=== PATIENT | male | born 1990 | race African-American/Black ===

== ENCOUNTER 2018-05-13 08:14 | Inpatient (IN) | payer OTHER ==
[2018-05-13] VITALS (10 sets, daily range): BP systolic 97–130; BP diastolic 52–79
[~2018-05-13] VITALS: Ht 188 cm; Wt 81.6 kg
--- NOTE | 2018-05-13 08:54 | PDOC1 ---
History and Physical Date of Admission Date of Admission DATE: 05/13/18 TIME: 08:51 Identification/Chief Complaint Chief Complaint Abdominal pain right lower quadrant Source Source: Patient History of Present Illness History of Present Illness 27-year-old male with 2 day history of abdominal pain radiating to the right lower quadrant sharp in nature worsening over time. Patient does describe nausea no vomiting. Denies any fevers or chills. His never had any surgery. CT scan shows dilated appendix with fecalith Past Medical History Cardiovascular: No pertinent hx Pulmonary: No pertinent hx GI: No pertinent hx Heme/Onc: No pertinent hx Hepatobiliary: No pertinent hx Psych: No pertinent hx Rheumatologic: No pertinent hx ENT: No pertinent hx Renal/: No pertinent hx Endocrine: No pertinent hx Dermatology: No pertinent hx Past Surgical History Past Surgical History: No pertinent history Family History Family History: No Significant Social History Smoke: No ALCOHOL: rare Drugs: None Allergies Allergies: Coded Allergies: No Known Drug Allergies (Unverified , 05/13/18) ROS Gastrointestinal: Yes Nausea, Yes Abdominal Pain Physical Exam General: Alert, Oriented X3, Cooperative, mild distress HEENT: Atraumatic, PERRLA, EOMI Lungs: Clear to auscultation, Normal air movement Heart: RRR, no murmurs Abdomen: Normal bowel sounds, Soft, Other (tender to palpation right lower quadrant) Rectal Exam: not examined Extremities: No edema Skin: No significant lesion Neuro: Normal speech Psych/Mental Status: Mental status NL VTE Prophylaxis Ordered VTE Prophylaxis Devices: Yes VTE Pharmacological Prophylaxi: Contraindicated Assessment/Plan Assessment/Plan Right lower quadrant abdominal pain with nausea CT scan showing signs consistent with acute appendicitis plan for laparoscopic appendectomy today. Discussed procedure with the patient including risk benefits possibility of open appendectomy. MARGOTH ABRAHAM MD May 13, 2018 08:54
[2018-05-13] MEDS ORDERED: IV RINGERS,LACTATED 1000ML 1,000 ML IV SCH (09:08)
[2018-05-13] MEDS ORDERED: HYDROmorphone 2 MG/ML VIAL IV PRN (09:15)
[2018-05-13] MEDS ORDERED: MORPHINE SULFATE 2 MG/ML VIAL. IV PRN (09:15)
[2018-05-13] MEDS ORDERED: ONDANSETRON PF 4 MG/2 ML VIAL. IV PRN ×2 (09:15→11:30)
[2018-05-13] MEDS ORDERED: fentaNYL PF VIAL 100 MCG/2 ML VIAL IV PRN (09:15)
[2018-05-13] MEDS ORDERED: LIDOCAINE 1% PF 2 ML VIAL. ID PRN (09:15)
[2018-05-13] MEDS ORDERED: PROCHLORPERAZINE 10 MG/2 ML VIAL. IV PRN (09:15)
[2018-05-13] MEDS ORDERED: PROPOFOL 20 ML IV ONE (09:28)
[2018-05-13] MEDS ORDERED: LIDOCAINE 2% PF 5 ML VIAL. ONE (09:28)
[2018-05-13] MEDS ORDERED: ROCURONIUM 50 MG/5 ML VIAL. ONE (09:29)
[2018-05-13] MEDS ORDERED: fentaNYL PF VIAL 100 MCG/2 ML VIAL ONE ×2 (09:29→11:28)
[2018-05-13] MEDS ORDERED: BUPIVAC MPF-EPI 0.5%-1:200000 30 ML VIAL. ONE (10:42)
[2018-05-13] MEDS: PIPERACILLIN/TAZOBACTAM 3.375 GM in IV NORMAL SALINE 50ML 50 ML IV SCH ×2 (10:59→18:47)
[2018-05-13] MEDS ORDERED: DESFLURANE 16 TO 30 MINUTES. IH ONE (11:02)
[2018-05-13] MEDS ORDERED: ONDANSETRON PF 4 MG/2 ML VIAL. ONE (11:02)
[2018-05-13] MEDS ORDERED: DEXAMETHASONE SOD PHOS 20 MG/5 ML VIAL. ONE (11:02)
[2018-05-13] MEDS ORDERED: GLYCOPYRROLATE 1 MG/5 ML VIAL. ONE (11:04)
[2018-05-13] MEDS ORDERED: NEOSTIGMINE 10 MG/10 ML VIAL. ONE (11:04)
[2018-05-13] MEDS ORDERED: PROCHLORPERAZINE 10 MG/2 ML VIAL. ONE (11:28)
[2018-05-13] MEDS: IV DEXTROSE 5%-LACT RINGERS 1,000 ML IV SCH (11:28)
--- NOTE | 2018-05-13 11:28 | PDOC4 ---
Operative Note Operative Note Date: 05/13/2018 Preoperative diagnosis: Acute appendicitis Operative diagnosis: Same Surgeon: Benedicto Procedure: Laparoscopic appendectomy Specimen: Appendix Dictation: Patient is 27-year-old male who is better to the hospital for right lower quadrant abdominal pain [address] scan showing dilated appendix with a fecalith. Procedure of laparoscopic appendectomy was explained to the patient detail risk benefits were also discussed including bleeding infection injury to intra-abdominal contents possibly necessitating further open operations alternatives to this procedure also discussed with the patient who seemed to understand and gave both verbal and written consent to have the procedure performed. Patient was taken to the operative reports the supine position general anesthesia was initiated once patient was sleep and intubated his abdomen was prepped and draped usual sterile fashion using ChloraPrep and area just above the umbilicus was injected with quarter percent Marcaine with epinephrine and incision was made with 11 blade scalpel and a varies needle was placed within the abdomen creating a pneumoperitoneum once this was completed 12 mm port was placed and a 5 mm camera was placed within the abdomen abdomen was inspected the appendix was visualized the right lower quadrant which appeared to be quite dilated and somewhat inflamed. A 5 mm port was placed in the midline low pelvis and a second 5 OmegaPort was placed in the right mid abdomen under direct visualization the appendix was grasped and retracted towards the anterior abdominal wall window was propagated and base of the appendix through the mesoappendix with a [place] dissector once this was complete an Endo RAUL stapler using a blue load was used to staple and transect the base of the appendix. An stabled and transected with the same Endo RAUL. The appendix was placed in the Endo Catch bag and removed from the umbilicus right lower quadrant pelvis were irrigated and suctioned dry hemostased and be appropriate and the pneumoperitoneum was reduced all ports were removed fascial defect at the umbilicus was closed with a [id number] 0 Vicryl suture and the skin was reapproximated all port sites for septic or Monocryl Mastisol Steri -Strips and Band-Aids were applied as dressings. Patient was awakened and extubated in the operating room taken to recovery in stable condition all sponge instrument needle counts listed as correct isthmic blood loss 5 mL MARGOTH ABRAHAM MD May 13, 2018 11:28
[2018-05-13] MEDS ORDERED: oxyCODONE/APAP 5/325 1 TAB TABLET PO PRN (11:30)
[2018-05-13] MEDS ORDERED: 0.9 % SODIUM CHLORIDE 10 ML DISP.SYRIN. IV PRN (11:30)
[2018-05-13] MEDS ORDERED: MORPHINE SULFATE 4 MG/ML VIAL. IV PRN (11:30)
[2018-05-13] MEDS ORDERED: PIPERACILLIN/TAZOBACTAM 3.375 GM in IV NORMAL SALINE 50ML 50 ML IV SCH (12:00)
[2018-05-13] MEDS: KETOROLAC 15 MG/ML VIAL. IV SCH ×3 (12:00→20:55)
[2018-05-13] MEDS: fentaNYL PF VIAL 100 MCG/2 ML VIAL IV PRN ×2 (12:09→12:36)
--- NOTE | 2018-05-13 13:30 | NUR ---
Pt admitted from PACU. A&o X4, VSS, denies pain, lap sites X3 CDI. Completed admission assessment. Oriented to room and routines. Tray ordered. Water pitcher filled. Call light within reach. Will continue to monitor.
--- NOTE | 2018-05-13 18:02 | PDOC1 ---
History and Physical Date of Admission Date of Admission DATE: 05/13/18 TIME: 18:01 Identification/Chief Complaint Chief Complaint abd pain Source Source: Chart review, Patient History of Present Illness History of Present Illness Mr. Conway, 27-year-old male, active [employer], with 2 day history of abdominal pain radiating to the right lower quadrant sharp in nature worsening over time. taken urgently to the OR with Dr. Diane due to CT from OSH with dilated appendix with fecalith Past Medical History Cardiovascular: No pertinent hx Pulmonary: No pertinent hx GI: No pertinent hx Heme/Onc: No pertinent hx Hepatobiliary: No pertinent hx Psych: No pertinent hx Rheumatologic: No pertinent hx ENT: No pertinent hx Renal/: No pertinent hx Endocrine: No pertinent hx Dermatology: No pertinent hx Past Surgical History Past Surgical History: No pertinent history Family History Family History: No Significant Social History Smoke: No ALCOHOL: rare Drugs: None Current Medications Current Medications Current Medications Piperacillin Sod/ Tazobactam Sod 3.375 gm/Sodium Chloride 50 ml @ 100 mls/hr Q6HRS IV Last administered on 05/13/18at 10:59; Start 05/13/18 at 10:00 Ondansetron HCl (Zofran) 4 mg PRN Q6HRS PRN IV NAUSEA/VOMITING; Start 05/13/18 at 09:15; Stop 05/13/18 at 18:00; Status DC Fentanyl Citrate (Fentanyl 2ml Vial) 25 mcg PRN Q5MIN PRN IV MILD PAIN; Start 05/13/18 at 09:15; Stop 05/13/18 at 18:00; Status DC Fentanyl Citrate (Fentanyl 2ml Vial) 50 mcg PRN Q5MIN PRN IV MODERATE TO SEVERE PAIN Last administered on 05/13/18at 12:36; Start 05/13/18 at 09:15; Stop 05/13/18 at 18:00; Status DC Morphine Sulfate (Morphine Sulfate) 1 mg PRN Q10MIN PRN IV SEVERE PAIN; Start 05/13/18 at 09:15; Stop 05/13/18 at 18:00; Status DC Ringer's Solution 1,000 ml @ 30 mls/hr Q24H IV ; Start 05/13/18 at 09:08; Stop 05/13/18 at 21:07 Lidocaine HCl (Xylocaine-Mpf 1% 2ml Vial) 2 ml 1X PRN PRN ID IV START; Start at 09:15; Stop 05/13/18 at 18:00; Status DC Hydromorphone HCl (Dilaudid) 0.5 mg PRN Q10MIN PRN IV SEV PAIN, Second choice; Start 05/13/18 at 09:15; Stop 05/13/18 at 18:00; Status DC Prochlorperazine Edisylate (Compazine) 5 mg PACU PRN PRN IV NAUSEA, MRX1; Start 05/13/18 at 09:15; Stop 05/13/18 at 18:00; Status DC Lidocaine HCl (Lidocaine Pf 2% Vial) 5 ml STK-MED ONCE .ROUTE ; Start 05/13/18 at 09:28; Stop 05/13/18 at 09:29; Status DC Propofol 20 ml @ As Directed STK-MED ONCE IV ; Start 05/13/18 at 09:28; Stop at 09:29; Status DC Rocuronium [place] (Zemuron) 50 mg STK-MED ONCE .ROUTE ; Start 05/13/18 at 09:29 ; Stop 05/13/18 at 09:30; Status DC Fentanyl Citrate (Fentanyl 2ml Vial) 100 mcg STK-MED ONCE .ROUTE ; Start at 09:29; Stop 05/13/18 at 09:30; Status DC Bupivacaine HCl/ Epinephrine Bitart (Sensorcain-Mpf Epi 0.5%-1:[id number]) 30 ml STK -MED ONCE .ROUTE Last administered on 05/13/18at 11:07; Start 05/13/18 at 10:42 ; Stop 05/13/18 at 10:43; Status DC Dexamethasone Sodium Phosphate (Decadron) 20 mg STK-MED ONCE .ROUTE ; Start at 11:02; Stop 05/13/18 at 11:03; Status DC Ondansetron HCl (Zofran) 4 mg STK-MED ONCE .ROUTE ; Start 05/13/18 at 11:02; Stop 05/13/18 at 11:03; Status DC Desflurane (Suprane) 15 ml STK-MED ONCE IH ; Start 05/13/18 at 11:02; Stop 05/13 at 11:03; Status DC Neostigmine Methylsulfate (Bloxiverz) 10 mg STK-MED ONCE .ROUTE ; Start at 11:04; Stop 05/13/18 at 11:05; Status DC Glycopyrrolate (Robinul) 1 mg STK-MED ONCE .ROUTE ; Start 05/13/18 at 11:04; Stop 05/13/18 at 11:05; Status DC Fentanyl Citrate (Fentanyl 2ml Vial) 100 mcg STK-MED ONCE .ROUTE ; Start at 11:28; Stop 05/13/18 at 11:29; Status DC Prochlorperazine Edisylate (Compazine) 10 mg STK-MED ONCE .ROUTE ; Start at 11:28; Stop 05/13/18 at 11:29; Status DC Sodium Chloride (Normal Saline Flush) 3 ml QSHIFT PRN IV AFTER MEDS AND BLOOD DRAWS; Start 05/13/18 at 11:30 Morphine Sulfate (Morphine Sulfate) 2 mg PRN Q3HRS PRN IV PAIN; Start 05/13/18 at 11:30 Oxycodone/ Acetaminophen (Percocet 5/325) 1 tab PRN Q4HRS PRN PO MILD PAIN, 1ST CHOICE; Start 05/13/18 at 11:30 Oxycodone/ Acetaminophen (Percocet 5/325) 2 tab PRN Q4HRS PRN PO MODERATE PAIN , SEVERE PAIN; Start 05/13/18 at 11:30 Ketorolac Tromethamine (Toradol 15mg Vial) 15 mg Q6HRS IV ; Start 05/13/18 at 12 :00; Stop 05/15/18 at 11:59 Ondansetron HCl (Zofran) 4 mg PRN Q6HRS PRN IV NAUSEA, 1ST CHOICE; Start at 11:30 Dextrose/Lactated Ringer's 1,000 ml @ 75 mls/hr [id number] IV ; Start 05/13/18 at 11:28 Piperacillin Sod/ Tazobactam Sod 3.375 gm/Sodium Chloride 50 ml @ 100 mls/hr Q6HRS IV ; Start 05/13/18 at 12:00; Status Cancel Allergies Allergies: Coded Allergies: No Known Drug Allergies (Unverified , 05/13/18) ROS General: No: Chills, Night Sweats, Fatigue, Malaise, Appetite, Other PSYCHOLOGICAL ROS: No: Anxiety, Behavioral Disorder, Concentration difficultie , Decreased libido, Depression, Disorientation, Hallucinations, Hostility, Irritablity, Memory difficulties, Mood Swings, Obsessive thoughts, Physical abuse, Sexual abuse, Sleep disturbances, Suicidal ideation, Other Eyes: No Blurry vision, No Decreased vision, No Double vision, No Dry eyes, No Excessive tearing, No Eye Pain, No Itchy Eyes, No Loss of vision, No Photophobia , No Scotomata, No Uses contacts, No Uses glasses, No Other HEENT: No: Heacaches, Visual Changes, Hearing change, Nasal congestion, Nasal discharge, Oral lesions, Sinus pain, Sore Throat, Epistaxis, Sneezing, Snoring, Tinnitus, Vertigo, Vocal changes, Other Respiratory: No: Cough, Hemoptysis, Orthopnea, Pleuritic Pain, Shortness of breath, SOB with excertion, Sputum Changes, Stridor, Tachypnea, Wheezing, Other Cardiovascular: No Chest Pain, No Palpitations, No Orthopnea, No Paroxysmal Noc. Dyspnea, No Edema, No Lt Headedness, No Other Gastrointestinal: No Nausea, No Vomiting, No Abdominal Pain, No Diarrhea, No Constipation, No Melena, No Hematochezia, No Other Genitourinary: No Dysuria, No Frequency, No Incontinence, No Hematuria, No Retention, No Discharge, No Urgency, No Pain, No Flank Pain, No Other, No , No , No , No , No , No , No Musculoskeletal: No Gait Disturbance, No Joint Pain, No Joint Stiffness, No Joint Swelling, No Muscle Pain, No Muscular Weakness, No Pain In:, No Swelling In:, No Other Skin: No Dry Skin, No Eczema, No Hair Changes, No Lumps, No Mole Changes, No Mottling, No Nail Changes, No Pruritus, No Rash, No Skin Lesion Changes, No Other, No Acne Physical Exam General: Alert, Oriented X3, Cooperative, No acute distress HEENT: Atraumatic Lungs: Normal air movement Extremities: No clubbing, No cyanosis, No edema, Normal pulses Neuro: Sensation intact, Cranial nerves 3-12 NL Psych/Mental Status: Mood NL Vitals Vitals Vital Signs Date Time Temp Pulse Resp B/P (MAP) Pulse Ox O2 Delivery O2 Flow Rate FiO2 05/13/18 16:00 55 20 130/58 (82) 96 Room Air 05/13/18 13:17 98.4 98.4 05/13/18 12:36 10.0 VTE Prophylaxis Ordered VTE Prophylaxis Devices: Yes VTE Pharmacological Prophylaxi: Contraindicated Assessment/Plan Assessment/Plan acute appendicitis, to OR, obs DALE NAILS MD May 13, 2018 18:02
[2018-05-13] MEDS: oxyCODONE/APAP 5/325 1 TAB TABLET PO PRN (20:57)
[2018-05-14] MEDS: IV DEXTROSE 5%-LACT RINGERS 1,000 ML IV SCH ×2 (00:48→14:08)
[2018-05-14] MEDS: PIPERACILLIN/TAZOBACTAM 3.375 GM in IV NORMAL SALINE 50ML 50 ML IV SCH ×4 (00:56→18:16)
[2018-05-14 03:21] VITALS: BP 125/44
[2018-05-14 05:54] LABS: BASO % 0 % (0-3); EOS % 0 % (0-3); HEMATOCRIT 39.5 % (39.0-53.0); LYMPH # 1.1 x10^3/uL (1.0-4.8); LYMPH % 8 % (24-48); MEAN CORPUSCULAR HEMOGLOBIN 30 pg (25-35); MEAN CORPUSCULAR HGB CONC 33 g/dL (31-37); MEAN CORPUSCULAR VOLUME 90 fL (79-100); MONO % 7 % (0-9); NEUT # 12.2 x10^3uL (1.8-7.7); NEUT % 85 % (31-73); PLATELET COUNT 272 x10^3/uL (140-400); RED BLOOD COUNT 4.39 x10^6/uL (4.30-5.70); RED CELL DISTRIBUTION WIDTH 13.2 % (11.5-14.5); WHITE BLOOD COUNT 14.4 x10^3/uL (4.0-11.0)
[2018-05-14] MEDS: KETOROLAC 15 MG/ML VIAL. IV SCH ×3 (05:59→18:18)
[2018-05-14 07:00] VITALS: BP 119/57
[2018-05-14] MEDS: oxyCODONE/APAP 5/325 1 TAB TABLET PO PRN ×2 (09:21→20:49)
--- NOTE | 2018-05-14 09:44 | PDOC ---
ANTIONE ROBLERO ONLINE RETAILER 05/14/18 0944: SURGICAL PROGRESS NOTE Subjective tolerating diet pain managed Vital Signs Vital Signs Date Time Temp Pulse Resp B/P (MAP) Pulse Ox O2 Delivery O2 Flow Rate FiO2 05/14/18 09:21 Room Air 05/14/18 07:00 97.9 57 16 119/57 (77) 98 97.9 05/13/18 12:36 10.0 I&O Intake and Output 05/14/18 07:00 Intake Total 2080 ml Output Total 1010 ml Balance 1070 ml Intake Oral 1230 ml IV Total 850 ml Output Urine Total 1000 ml Estimated Blood Loss 10 ml # Voids 3 General: Alert, Oriented X3, Cooperative, No acute distress Abdomen: Soft, No tenderness Labs Laboratory Tests Test 05/14/18 05:30 White Blood Count 14.4 x10^3/uL (4.0-11.0) Red Blood Count 4.39 x10^6/uL (4.30-5.70) Hemoglobin 13.0 g/dL (13.0-17.5) Hematocrit 39.5 % (39.0-53.0) Mean Corpuscular Volume 90 fL (79-100) Mean Corpuscular Hemoglobin 30 pg (25-35) Mean Corpuscular Hemoglobin Concent 33 g/dL (31-37) Red Cell Distribution Width 13.2 % (11.5-14.5) Platelet Count 272 x10^3/uL (140-400) Neutrophils (%) (Auto) 85 % (31-73) Lymphocytes (%) (Auto) 8 % (24-48) Monocytes (%) (Auto) 7 % (0-9) Eosinophils (%) (Auto) 0 % (0-3) Basophils (%) (Auto) 0 % (0-3) Neutrophils # (Auto) 12.2 x10^3uL (1.8-7.7) Lymphocytes # (Auto) 1.1 x10^3/uL (1.0-4.8) Monocytes # (Auto) 1.0 x10^3/uL (0.0-1.1) Eosinophils # (Auto) 0.0 x10^3/uL (0.0-0.7) Basophils # (Auto) 0.0 x10^3/uL (0.0-0.2) Laboratory Tests Test 05/14/18 05:30 White Blood Count 14.4 x10^3/uL (4.0-11.0) Red Blood Count 4.39 x10^6/uL (4.30-5.70) Hemoglobin 13.0 g/dL (13.0-17.5) Hematocrit 39.5 % (39.0-53.0) Mean Corpuscular Volume 90 fL (79-100) Mean Corpuscular Hemoglobin 30 pg (25-35) Mean Corpuscular Hemoglobin Concent 33 g/dL (31-37) Red Cell Distribution Width 13.2 % (11.5-14.5) Platelet Count 272 x10^3/uL (140-400) Neutrophils (%) (Auto) 85 % (31-73) Lymphocytes (%) (Auto) 8 % (24-48) Monocytes (%) (Auto) 7 % (0-9) Eosinophils (%) (Auto) 0 % (0-3) Basophils (%) (Auto) 0 % (0-3) Neutrophils # (Auto) 12.2 x10^3uL (1.8-7.7) Lymphocytes # (Auto) 1.1 x10^3/uL (1.0-4.8) Monocytes # (Auto) 1.0 x10^3/uL (0.0-1.1) Eosinophils # (Auto) 0.0 x10^3/uL (0.0-0.7) Basophils # (Auto) 0.0 x10^3/uL (0.0-0.2) Assessment/Plan s/p appy wbc 14, continue iv abx today cbc in am MARGOTH ABRAHAM MD 05/14/18 1124: SURGICAL PROGRESS NOTE Assessment/Plan Patient doing tolerating diet white count 14,000 continue IV antibiotics recheck CBC area and agree with Natalia assessment and plan ANTIONE ROBLERO APRN May 14, 2018 09:44 MARGOTH ABRAHAM MD May 14, 2018 11:24
--- NOTE | 2018-05-14 10:04 | NUR ---
SW reviewed pt's medical chart and evaluated for dc needs. 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 There are no dc needs at this time. SW will be available if pt's condition changes and dc planning is required.
[2018-05-14 11:00] VITALS: BP 113/66
[2018-05-14] MEDS ORDERED: DOCUSATE SODIUM 100 MG CAPSULE. PO PRN (12:15)
--- NOTE | 2018-05-14 14:09 | PATHOLOGY ---
[facility] Accession Number: [id number] . 01 Material submitted: . APPENDIX . 01 Clinical history: . Appendicitis. . 02 Diagnosis: Appendix, appendectomy: - Acute appendicitis. (SK/db; 05/14/2018) LBQ/05/14/2018 . 02 Electronically signed: . Tyrone Yoder MD, Pathologist NPI- [id number] . 01 Gross description: . Received in formalin labeled "Man, [place], appendix" is an appendectomy specimen measuring 7.3 cm in length and ranging from 1.1-1.6 cm in diameter. There is an attached portion of mesoappendix measuring 4.3 x 1.1 x 0.5 cm. The proximal margin is closed with a staple line. The serosa is pink-red and focally hemorrhagic. The specimen is serially sectioned to reveal a dilated lumen ranging from 0.5-0.9 cm. A foster-brown fecalith is present in the distal tip measuring 1.3 cm in greatest dimension. No perforations are identified. White Sugar Syrup Operator sections are submitted in cassette A1-A2, with the proximal margin inked black. ([facility]; 05/13/2018) SYC/SYC . 02 Pathologist provided ICD-10: K35.80 . 02 CPT . 857564 Specimen Comment: A courtesy copy of this report has been sent to Specimen Comment: [phone], . Specimen Comment: Report sent to / DR CULVER Specimen Comment: A duplicate report has been generated due to demographic updates. Performed at: [address], [place], [place] [id number] MD Jairo Cavazos MD Phone: [phone] Performed at: [address] [id number] MD Jose Elias Becerra MD Phone: [phone]
[2018-05-14 15:00] VITALS: BP 115/74
--- NOTE | 2018-05-14 15:46 | PDOC ---
PROGRESS NOTES Chief Complaint Chief Complaint acute appendicitis, leukocytosis w.o. SIRS, , cont IV abx, monitor in hospital until tomorrow Vitals Vitals Vital Signs Date Time Temp Pulse Resp B/P (MAP) Pulse Ox O2 Delivery O2 Flow Rate FiO2 05/14/18 11:00 98.1 47 16 113/66 (82) 99 Room Air 98.1 05/13/18 12:36 10.0 Physical Exam General: Alert, Oriented X3, Cooperative, No acute distress Abdomen: Soft, No tenderness Extremities: No clubbing, No cyanosis, No edema, Normal pulses Skin: No significant lesion Labs LABS Laboratory Tests Test 05/14/18 05:30 White Blood Count 14.4 x10^3/uL (4.0-11.0) Red Blood Count 4.39 x10^6/uL (4.30-5.70) Hemoglobin 13.0 g/dL (13.0-17.5) Hematocrit 39.5 % (39.0-53.0) Mean Corpuscular Volume 90 fL (79-100) Mean Corpuscular Hemoglobin 30 pg (25-35) Mean Corpuscular Hemoglobin Concent 33 g/dL (31-37) Red Cell Distribution Width 13.2 % (11.5-14.5) Platelet Count 272 x10^3/uL (140-400) Neutrophils (%) (Auto) 85 % (31-73) Lymphocytes (%) (Auto) 8 % (24-48) Monocytes (%) (Auto) 7 % (0-9) Eosinophils (%) (Auto) 0 % (0-3) Basophils (%) (Auto) 0 % (0-3) Neutrophils # (Auto) 12.2 x10^3uL (1.8-7.7) Lymphocytes # (Auto) 1.1 x10^3/uL (1.0-4.8) Monocytes # (Auto) 1.0 x10^3/uL (0.0-1.1) Eosinophils # (Auto) 0.0 x10^3/uL (0.0-0.7) Basophils # (Auto) 0.0 x10^3/uL (0.0-0.2) Comment Review of Relevant I have reviewed the following items primitivo (where applicable) has been applied. Labs Laboratory Tests Test 05/14/18 05:30 White Blood Count 14.4 x10^3/uL (4.0-11.0) Red Blood Count 4.39 x10^6/uL (4.30-5.70) Hemoglobin 13.0 g/dL (13.0-17.5) Hematocrit 39.5 % (39.0-53.0) Mean Corpuscular Volume 90 fL (79-100) Mean Corpuscular Hemoglobin 30 pg (25-35) Mean Corpuscular Hemoglobin Concent 33 g/dL (31-37) Red Cell Distribution Width 13.2 % (11.5-14.5) Platelet Count 272 x10^3/uL (140-400) Neutrophils (%) (Auto) 85 % (31-73) Lymphocytes (%) (Auto) 8 % (24-48) Monocytes (%) (Auto) 7 % (0-9) Eosinophils (%) (Auto) 0 % (0-3) Basophils (%) (Auto) 0 % (0-3) Neutrophils # (Auto) 12.2 x10^3uL (1.8-7.7) Lymphocytes # (Auto) 1.1 x10^3/uL (1.0-4.8) Monocytes # (Auto) 1.0 x10^3/uL (0.0-1.1) Eosinophils # (Auto) 0.0 x10^3/uL (0.0-0.7) Basophils # (Auto) 0.0 x10^3/uL (0.0-0.2) Laboratory Tests Test 05/14/18 05:30 White Blood Count 14.4 x10^3/uL (4.0-11.0) Red Blood Count 4.39 x10^6/uL (4.30-5.70) Hemoglobin 13.0 g/dL (13.0-17.5) Hematocrit 39.5 % (39.0-53.0) Mean Corpuscular Volume 90 fL (79-100) Mean Corpuscular Hemoglobin 30 pg (25-35) Mean Corpuscular Hemoglobin Concent 33 g/dL (31-37) Red Cell Distribution Width 13.2 % (11.5-14.5) Platelet Count 272 x10^3/uL (140-400) Neutrophils (%) (Auto) 85 % (31-73) Lymphocytes (%) (Auto) 8 % (24-48) Monocytes (%) (Auto) 7 % (0-9) Eosinophils (%) (Auto) 0 % (0-3) Basophils (%) (Auto) 0 % (0-3) Neutrophils # (Auto) 12.2 x10^3uL (1.8-7.7) Lymphocytes # (Auto) 1.1 x10^3/uL (1.0-4.8) Monocytes # (Auto) 1.0 x10^3/uL (0.0-1.1) Eosinophils # (Auto) 0.0 x10^3/uL (0.0-0.7) Basophils # (Auto) 0.0 x10^3/uL (0.0-0.2) Medications Current Medications Piperacillin Sod/ Tazobactam Sod 3.375 gm/Sodium Chloride 50 ml @ 100 mls/hr Q6HRS IV Last administered on 05/14/18at 12:13; Start 05/13/18 at 10:00 Ondansetron HCl (Zofran) 4 mg PRN Q6HRS PRN IV NAUSEA/VOMITING; Start 05/13/18 at 09:15; Stop 05/13/18 at 18:00; Status DC Fentanyl Citrate (Fentanyl 2ml Vial) 25 mcg PRN Q5MIN PRN IV MILD PAIN; Start 05/13/18 at 09:15; Stop 05/13/18 at 18:00; Status DC Fentanyl Citrate (Fentanyl 2ml Vial) 50 mcg PRN Q5MIN PRN IV MODERATE TO SEVERE PAIN Last administered on 05/13/18at 12:36; Start 05/13/18 at 09:15; Stop 05/13/18 at 18:00; Status DC Morphine Sulfate (Morphine Sulfate) 1 mg PRN Q10MIN PRN IV SEVERE PAIN; Start 05/13/18 at 09:15; Stop 05/13/18 at 18:00; Status DC Ringer's Solution 1,000 ml @ 30 mls/hr Q24H IV ; Start 05/13/18 at 09:08; Stop 05/13/18 at 21:07; Status DC Lidocaine HCl (Xylocaine-Mpf 1% 2ml Vial) 2 ml 1X PRN PRN ID IV START; Start at 09:15; Stop 2/21/19 at 18:00; Status DC Hydromorphone HCl (Dilaudid) 0.5 mg PRN Q10MIN PRN IV SEV PAIN, Second choice; Start 05/13/18 at 09:15; Stop 05/13/18 at 18:00; Status DC Prochlorperazine Edisylate (Compazine) 5 mg PACU PRN PRN IV NAUSEA, MRX1; Start 05/13/18 at 09:15; Stop 05/13/18 at 18:00; Status DC Lidocaine HCl (Lidocaine Pf 2% Vial) 5 ml STK-MED ONCE .ROUTE ; Start 05/13/18 at 09:28; Stop 05/13/18 at 09:29; Status DC Propofol 20 ml @ As Directed STK-MED ONCE IV ; Start 05/13/18 at 09:28; Stop at 09:29; Status DC Rocuronium [place] (Zemuron) 50 mg STK-MED ONCE .ROUTE ; Start 05/13/18 at 09:29 ; Stop 05/13/18 at 09:30; Status DC Fentanyl Citrate (Fentanyl 2ml Vial) 100 mcg STK-MED ONCE .ROUTE ; Start at 09:29; Stop 05/13/18 at 09:30; Status DC Bupivacaine HCl/ Epinephrine Bitart (Sensorcain-Mpf Epi 0.5%-1:087065) 30 ml STK -MED ONCE .ROUTE Last administered on 05/13/18at 11:07; Start 05/13/18 at 10:42 ; Stop 05/13/18 at 10:43; Status DC Dexamethasone Sodium Phosphate (Decadron) 20 mg STK-MED ONCE .ROUTE ; Start at 11:02; Stop 05/13/18 at 11:03; Status DC Ondansetron HCl (Zofran) 4 mg STK-MED ONCE .ROUTE ; Start 05/13/18 at 11:02; Stop 05/13/18 at 11:03; Status DC Desflurane (Suprane) 15 ml STK-MED ONCE IH ; Start 05/13/18 at 11:02; Stop 05/13 at 11:03; Status DC Neostigmine Methylsulfate (Bloxiverz) 10 mg STK-MED ONCE .ROUTE ; Start at 11:04; Stop 05/13/18 at 11:05; Status DC Glycopyrrolate (Robinul) 1 mg STK-MED ONCE .ROUTE ; Start 05/13/18 at 11:04; Stop 05/13/18 at 11:05; Status DC Fentanyl Citrate (Fentanyl 2ml Vial) 100 mcg STK-MED ONCE .ROUTE ; Start at 11:28; Stop 05/13/18 at 11:29; Status DC Prochlorperazine Edisylate (Compazine) 10 mg STK-MED ONCE .ROUTE ; Start at 11:28; Stop 05/13/18 at 11:29; Status DC Sodium Chloride (Normal Saline Flush) 3 ml QSHIFT PRN IV AFTER MEDS AND BLOOD DRAWS; Start 05/13/18 at 11:30 Morphine Sulfate (Morphine Sulfate) 2 mg PRN Q3HRS PRN IV PAIN; Start 05/13/18 at 11:30 Oxycodone/ Acetaminophen (Percocet 5/325) 1 tab PRN Q4HRS PRN PO MILD PAIN, 1ST CHOICE; Start 05/13/18 at 11:30 Oxycodone/ Acetaminophen (Percocet 5/325) 2 tab PRN Q4HRS PRN PO MODERATE PAIN , SEVERE PAIN Last administered on 05/14/18at 09:21; Start 05/13/18 at 11:30 Ketorolac Tromethamine (Toradol 15mg Vial) 15 mg Q6HRS IV Last administered on 05/14/18at 12:11; Start 05/13/18 at 12:00; Stop 05/15/18 at 11:59 Ondansetron HCl (Zofran) 4 mg PRN Q6HRS PRN IV NAUSEA, 1ST CHOICE; Start at 11:30 Dextrose/Lactated Ringer's 1,000 ml @ 75 mls/hr [id number] IV ; Start 05/13/18 at 11:28; Stop 05/14/18 at 14:45; Status DC Piperacillin Sod/ Tazobactam Sod 3.375 gm/Sodium Chloride 50 ml @ 100 mls/hr Q6HRS IV ; Start 05/13/18 at 12:00; Status Cancel Docusate Sodium (Colace) 100 mg PRN DAILY PRN PO CONSTIPATION Last administered on 05/14/18at 12:10; Start 05/14/18 at 12:15 Lactobacillus Rhamnosus (Culturelle) 1 cap BID PO ; Start 05/14/18 at 21:00 Vitals/I & O Vital Sign - Last 24 Hours 05/13/18 05/13/18 05/13/18 05/13/18 16:00 19:30 20:00 20:57 Temp 98.5 98.5 Pulse 55 82 Resp 20 16 B/P (MAP) 130/58 (82) 126/65 (85) Pulse Ox 96 95 95 O2 Delivery Room Air Room Air Room Air Room Air 05/13/18 05/13/18 05/14/18 05/14/18 21:57 23:21 03:21 07:00 Temp 97.8 97.8 97.9 97.8 97.8 97.9 Pulse 55 50 57 Resp 16 16 16 B/P (MAP) 112/56 (74) 125/44 (71) 119/57 (77) Pulse Ox 95 96 94 98 O2 Delivery Room Air Room Air Room Air 05/14/18 05/14/18 05/14/18 05/14/18 08:10 09:21 10:25 11:00 Temp 98.1 98.1 Pulse 47 Resp 16 B/P (MAP) 113/66 (82) Pulse Ox 99 O2 Delivery Room Air Room Air Room Air Room Air Intake and Output 05/13/18 05/13/18 05/14/18 15:00 23:00 07:00 Intake Total 850 ml 250 ml 980 ml Output Total 10 ml 1000 ml Balance 840 ml 250 ml -20 ml DALE NAILS MD May 14, 2018 15:46
[2018-05-14 19:30] VITALS: BP 125/79
[2018-05-14] MEDS: LACTOBACILLUS RHAMNOSUS GG 1 CAPSULE. PO SCH (20:46)
[2018-05-14 23:15] VITALS: BP 122/80
[2018-05-15] MEDS: KETOROLAC 15 MG/ML VIAL. IV SCH ×2 (00:09→05:51)
[2018-05-15] MEDS: PIPERACILLIN/TAZOBACTAM 3.375 GM in IV NORMAL SALINE 50ML 50 ML IV SCH ×3 (00:09→12:09)
[2018-05-15 03:09] VITALS: BP 120/78
[2018-05-15 05:08] LABS: BASO # 0.1 x10^3/uL (0.0-0.2); BASO % 1 % (0-3); EOS # 0.3 x10^3/uL (0.0-0.7); EOS % 5 % (0-3); HEMATOCRIT 37.5 % (39.0-53.0); HEMOGLOBIN 12.2 g/dL (13.0-17.5); LYMPH % 32 % (24-48); MEAN CORPUSCULAR HEMOGLOBIN 30 pg (25-35); MEAN CORPUSCULAR HGB CONC 33 g/dL (31-37); MEAN CORPUSCULAR VOLUME 91 fL (79-100); MONO # 0.5 x10^3/uL (0.0-1.1); MONO % 8 % (0-9); NEUT # 3.4 x10^3uL (1.8-7.7); NEUT % 54 % (31-73); PLATELET COUNT 249 x10^3/uL (140-400); RED BLOOD COUNT 4.12 x10^6/uL (4.30-5.70); RED CELL DISTRIBUTION WIDTH 13.5 % (11.5-14.5); WHITE BLOOD COUNT 6.3 x10^3/uL (4.0-11.0)
[2018-05-15 05:25] LABS: CALCIUM 8.5 mg/dL (8.5-10.1); CREATININE 1.7 mg/dL (0.7-1.3); GFR 59.2
[2018-05-15 07:00] VITALS: BP 110/50
[2018-05-15] MEDS: LACTOBACILLUS RHAMNOSUS GG 1 CAPSULE. PO SCH (09:00)
[2018-05-15] MEDS ORDERED: IV NORMAL SALINE 1000ML BAG 1,000 ML IV ONE (10:15)
[2018-05-15 11:00] VITALS: BP 166/61
[2018-05-15 12:09] LABS: BILIRUBIN,URINE NEGATIVE (NEG); CLARITY,URINE CLEAR; COLOR,URINE YELLOW; NITRITE,URINE NEGATIVE (NEG); PH,URINE 7.5; PROTEIN,URINE NEGATIVE (NEG-TRACE); UROBILINOGEN,URINE 0.2 mg/dL (0.2 mg/dL)
[2018-05-15 12:14] LABS: BACTERIA,URINE 0 /HPF (0-FEW); RBC,URINE 0 /HPF (0-2); SQUAMOUS EPITHELIAL CELL,UR OCC /LPF; WBC,URINE OCC /HPF (0-4)
[2018-05-15] MEDS ORDERED: OXYC1TAB15 PO (12:43)
[2018-05-15] MEDS ORDERED: CEFD300C PO (12:43)
[2018-05-15] MEDS ORDERED: ONDA4TAB7 PO (12:43)
--- NOTE | 2018-05-15 13:47 | PDOC ---
SURGICAL PROGRESS NOTE Subjective Pt without c/o, jeffry PO Vital Signs Vital Signs Date Time Temp Pulse Resp B/P (MAP) Pulse Ox O2 Delivery O2 Flow Rate FiO2 05/15/18 11:00 97.8 66 18 166/61 (96) 98 Room Air 97.8 I&O Intake and Output 05/15/18 06:59 Intake Total 1430 ml Balance 1430 ml Intake Oral 1430 ml # Voids 12 General: Alert, Oriented X3, Cooperative, No acute distress Abdomen: Soft, No tenderness, Other (incision c/d/i) Labs Laboratory Tests Test 05/14/18 05:30 05/15/18 04:30 05/15/18 10:45 White Blood Count 14.4 x10^3/uL (4.0-11.0) 6.3 x10^3/uL (4.0-11.0) Red Blood Count 4.39 x10^6/uL (4.30-5.70) 4.12 x10^6/uL (4.30-5.70) Hemoglobin 13.0 g/dL (13.0-17.5) 12.2 g/dL (13.0-17.5) Hematocrit 39.5 % (39.0-53.0) 37.5 % (39.0-53.0) Mean Corpuscular Volume 90 fL (79-100) 91 fL (79-100) Mean Corpuscular Hemoglobin 30 pg (25-35) 30 pg (25-35) Mean Corpuscular Hemoglobin Concent 33 g/dL (31-37) 33 g/dL (31-37) Red Cell Distribution Width 13.2 % (11.5-14.5) 13.5 % (11.5-14.5) Platelet Count 272 x10^3/uL (140-400) 249 x10^3/uL (140-400) Neutrophils (%) (Auto) 85 % (31-73) 54 % (31-73) Lymphocytes (%) (Auto) 8 % (24-48) 32 % (24-48) Monocytes (%) (Auto) 7 % (0-9) 8 % (0-9) Eosinophils (%) (Auto) 0 % (0-3) 5 % (0-3) Basophils (%) (Auto) 0 % (0-3) 1 % (0-3) Neutrophils # (Auto) 12.2 x10^3uL (1.8-7.7) 3.4 x10^3uL (1.8-7.7) Lymphocytes # (Auto) 1.1 x10^3/uL (1.0-4.8) 2.0 x10^3/uL (1.0-4.8) Monocytes # (Auto) 1.0 x10^3/uL (0.0-1.1) 0.5 x10^3/uL (0.0-1.1) Eosinophils # (Auto) 0.0 x10^3/uL (0.0-0.7) 0.3 x10^3/uL (0.0-0.7) Basophils # (Auto) 0.0 x10^3/uL (0.0-0.2) 0.1 x10^3/uL (0.0-0.2) Sodium Level 141 mmol/L (136-145) Potassium Level 4.0 mmol/L (3.5-5.1) Chloride Level 104 mmol/L (98-107) Carbon Dioxide Level 30 mmol/L (21-32) Anion Gap 7 (6-14) Blood Urea Nitrogen 16 mg/dL (8-26) Creatinine 1.7 mg/dL (0.7-1.3) Estimated GFR (Cockcroft-Gault) 59.2 Glucose Level 92 mg/dL (70-99) Calcium Level 8.5 mg/dL (8.5-10.1) Urine Color Yellow Urine Clarity Clear Urine pH 7.5 Urine Specific [place] 1.010 Urine Protein Negative mg/dL (NEG-TRACE) Urine Glucose (UA) Negative mg/dL (NEG) Urine Ketones (Stick) Negative mg/dL (NEG) Urine Blood Negative (NEG) Urine Nitrite Negative (NEG) Urine Bilirubin Negative (NEG) Urine Urobilinogen Dipstick 0.2 mg/dL (0.2 mg/dL) Urine Leukocyte Esterase Negative (NEG) Urine RBC 0 /HPF (0-2) Urine WBC Occ /HPF (0-4) Urine Squamous Epithelial Cells Occ /LPF Urine Bacteria 0 /HPF (0-FEW) Laboratory Tests Test 05/15/18 04:30 05/15/18 10:45 White Blood Count 6.3 x10^3/uL (4.0-11.0) Red Blood Count 4.12 x10^6/uL (4.30-5.70) Hemoglobin 12.2 g/dL (13.0-17.5) Hematocrit 37.5 % (39.0-53.0) Mean Corpuscular Volume 91 fL (79-100) Mean Corpuscular Hemoglobin 30 pg (25-35) Mean Corpuscular Hemoglobin Concent 33 g/dL (31-37) Red Cell Distribution Width 13.5 % (11.5-14.5) Platelet Count 249 x10^3/uL (140-400) Neutrophils (%) (Auto) 54 % (31-73) Lymphocytes (%) (Auto) 32 % (24-48) Monocytes (%) (Auto) 8 % (0-9) Eosinophils (%) (Auto) 5 % (0-3) Basophils (%) (Auto) 1 % (0-3) Neutrophils # (Auto) 3.4 x10^3uL (1.8-7.7) Lymphocytes # (Auto) 2.0 x10^3/uL (1.0-4.8) Monocytes # (Auto) 0.5 x10^3/uL (0.0-1.1) Eosinophils # (Auto) 0.3 x10^3/uL (0.0-0.7) Basophils # (Auto) 0.1 x10^3/uL (0.0-0.2) Sodium Level 141 mmol/L (136-145) Potassium Level 4.0 mmol/L (3.5-5.1) Chloride Level 104 mmol/L (98-107) Carbon Dioxide Level 30 mmol/L (21-32) Anion Gap 7 (6-14) Blood Urea Nitrogen 16 mg/dL (8-26) Creatinine 1.7 mg/dL (0.7-1.3) Estimated GFR (Cockcroft-Gault) 59.2 Glucose Level 92 mg/dL (70-99) Calcium Level 8.5 mg/dL (8.5-10.1) Urine Color Yellow Urine Clarity Clear Urine pH 7.5 Urine Specific [place] 1.010 Urine Protein Negative mg/dL (NEG-TRACE) Urine Glucose (UA) Negative mg/dL (NEG) Urine Ketones (Stick) Negative mg/dL (NEG) Urine Blood Negative (NEG) Urine Nitrite Negative (NEG) Urine Bilirubin Negative (NEG) Urine Urobilinogen Dipstick 0.2 mg/dL (0.2 mg/dL) Urine Leukocyte Esterase Negative (NEG) Urine RBC 0 /HPF (0-2) Urine WBC Occ /HPF (0-4) Urine Squamous Epithelial Cells Occ /LPF Urine Bacteria 0 /HPF (0-FEW) Problem List s/p lap appendectomy appears to be doing well OK to d/c from surgery POV and scripts on chart defer additional evaluation of elevated cr to primary, but suspect dehydration FREDDIE RICHARDS MD May 15, 2018 13:47
--- NOTE | 2018-05-15 15:50 | PDOC3 ---
Discharge Summary Visit Information Date of Admission: May 13, 2018 Date of Discharge: May 15, 2018 Admitting Diagnosis Comment: Acute appendicitis Final Diagnosis Acute appendicitis status post appendectomy Prerenal azotemia Brief Hospital Course Allergies Allergies Coded Allergies Type Severity Reaction Last Updated Verified No Known Drug Allergies 05/13/18 No Vital Signs Vital Signs Date Time Temp Pulse Resp B/P (MAP) Pulse Ox O2 Delivery O2 Flow Rate FiO2 05/15/18 11:00 97.8 66 18 166/61 (96) 98 Room Air 97.8 Lab Results Laboratory Tests Test 05/14/18 05:30 05/15/18 04:30 05/15/18 10:45 White Blood Count 14.4 x10^3/uL (4.0-11.0) 6.3 x10^3/uL (4.0-11.0) Red Blood Count 4.39 x10^6/uL (4.30-5.70) 4.12 x10^6/uL (4.30-5.70) Hemoglobin 13.0 g/dL (13.0-17.5) 12.2 g/dL (13.0-17.5) Hematocrit 39.5 % (39.0-53.0) 37.5 % (39.0-53.0) Mean Corpuscular Volume 90 fL (79-100) 91 fL (79-100) Mean Corpuscular Hemoglobin 30 pg (25-35) 30 pg (25-35) Mean Corpuscular Hemoglobin Concent 33 g/dL (31-37) 33 g/dL (31-37) Red Cell Distribution Width 13.2 % (11.5-14.5) 13.5 % (11.5-14.5) Platelet Count 272 x10^3/uL (140-400) 249 x10^3/uL (140-400) Neutrophils (%) (Auto) 85 % (31-73) 54 % (31-73) Lymphocytes (%) (Auto) 8 % (24-48) 32 % (24-48) Monocytes (%) (Auto) 7 % (0-9) 8 % (0-9) Eosinophils (%) (Auto) 0 % (0-3) 5 % (0-3) Basophils (%) (Auto) 0 % (0-3) 1 % (0-3) Neutrophils # (Auto) 12.2 x10^3uL (1.8-7.7) 3.4 x10^3uL (1.8-7.7) Lymphocytes # (Auto) 1.1 x10^3/uL (1.0-4.8) 2.0 x10^3/uL (1.0-4.8) Monocytes # (Auto) 1.0 x10^3/uL (0.0-1.1) 0.5 x10^3/uL (0.0-1.1) Eosinophils # (Auto) 0.0 x10^3/uL (0.0-0.7) 0.3 x10^3/uL (0.0-0.7) Basophils # (Auto) 0.0 x10^3/uL (0.0-0.2) 0.1 x10^3/uL (0.0-0.2) Sodium Level 141 mmol/L (136-145) Potassium Level 4.0 mmol/L (3.5-5.1) Chloride Level 104 mmol/L (98-107) Carbon Dioxide Level 30 mmol/L (21-32) Anion Gap 7 (6-14) Blood Urea Nitrogen 16 mg/dL (8-26) Creatinine 1.7 mg/dL (0.7-1.3) Estimated GFR (Cockcroft-Gault) 59.2 Glucose Level 92 mg/dL (70-99) Calcium Level 8.5 mg/dL (8.5-10.1) Urine Color Yellow Urine Clarity Clear Urine pH 7.5 Urine Specific [place] 1.010 Urine Protein Negative mg/dL (NEG-TRACE) Urine Glucose (UA) Negative mg/dL (NEG) Urine Ketones (Stick) Negative mg/dL (NEG) Urine Blood Negative (NEG) Urine Nitrite Negative (NEG) Urine Bilirubin Negative (NEG) Urine Urobilinogen Dipstick 0.2 mg/dL (0.2 mg/dL) Urine Leukocyte Esterase Negative (NEG) Urine RBC 0 /HPF (0-2) Urine WBC Occ /HPF (0-4) Urine Squamous Epithelial Cells Occ /LPF Urine Bacteria 0 /HPF (0-FEW) Laboratory Tests Test 05/15/18 04:30 05/15/18 10:45 White Blood Count 6.3 x10^3/uL (4.0-11.0) Red Blood Count 4.12 x10^6/uL (4.30-5.70) Hemoglobin 12.2 g/dL (13.0-17.5) Hematocrit 37.5 % (39.0-53.0) Mean Corpuscular Volume 91 fL (79-100) Mean Corpuscular Hemoglobin 30 pg (25-35) Mean Corpuscular Hemoglobin Concent 33 g/dL (31-37) Red Cell Distribution Width 13.5 % (11.5-14.5) Platelet Count 249 x10^3/uL (140-400) Neutrophils (%) (Auto) 54 % (31-73) Lymphocytes (%) (Auto) 32 % (24-48) Monocytes (%) (Auto) 8 % (0-9) Eosinophils (%) (Auto) 5 % (0-3) Basophils (%) (Auto) 1 % (0-3) Neutrophils # (Auto) 3.4 x10^3uL (1.8-7.7) Lymphocytes # (Auto) 2.0 x10^3/uL (1.0-4.8) Monocytes # (Auto) 0.5 x10^3/uL (0.0-1.1) Eosinophils # (Auto) 0.3 x10^3/uL (0.0-0.7) Basophils # (Auto) 0.1 x10^3/uL (0.0-0.2) Sodium Level 141 mmol/L (136-145) Potassium Level 4.0 mmol/L (3.5-5.1) Chloride Level 104 mmol/L (98-107) Carbon Dioxide Level 30 mmol/L (21-32) Anion Gap 7 (6-14) Blood Urea Nitrogen 16 mg/dL (8-26) Creatinine 1.7 mg/dL (0.7-1.3) Estimated GFR (Cockcroft-Gault) 59.2 Glucose Level 92 mg/dL (70-99) Calcium Level 8.5 mg/dL (8.5-10.1) Urine Color Yellow Urine Clarity Clear Urine pH 7.5 Urine Specific [place] 1.010 Urine Protein Negative mg/dL (NEG-TRACE) Urine Glucose (UA) Negative mg/dL (NEG) Urine Ketones (Stick) Negative mg/dL (NEG) Urine Blood Negative (NEG) Urine Nitrite Negative (NEG) Urine Bilirubin Negative (NEG) Urine Urobilinogen Dipstick 0.2 mg/dL (0.2 mg/dL) Urine Leukocyte Esterase Negative (NEG) Urine RBC 0 /HPF (0-2) Urine WBC Occ /HPF (0-4) Urine Squamous Epithelial Cells Occ /LPF Urine Bacteria 0 /HPF (0-FEW) Brief Hospital Course Mr. Conway is a 27 old male who presented with abdominal discomfort and an outside facility. The patient was evaluated in the emergency department attending Lambert was diagnosed with acute appendicitis. He was transferred to our facility for definitive treatment with appendectomy. The patient underwent the procedure and tolerated it well. Patient recovered well from it, there was a creatinine level that was 1.7 which seemed to be slightly out of range. Most likely secondary to prerenal septemia. The patient also had some Toradol given as part of his pain management Tania which may have caused his slight bump in his creatinine. The patient continued to have good urinary output no back pain no urinary symptoms were reported. Patient understands and acknowledges all the instructions prior to dismissal. Signs and symptoms of alarm discussed with the patient prior to discharge reassurances been provided. I have encourage [place] and have a BMP drawn on Thursday as well. In good spirits to be discharged home on concerns address to the best of my abilities Physical exam: Lungs clear to auscultation with good inspiratory effort [place] vascular S1-S2 regular rhythm no murmurs or rubs Discharge Information Condition at Discharge: Improved Follow Up: Weeks Disposition/Orders: D/C to Home Scheduled Cefdinir (Cefdinir) 300 Mg Capsule, 1 CAP PO BID for appendicitis for 5 Days, # 10 Prescribed by: FELICITA SOTOMAYOR MD on 05/15/18 1243 Ondansetron Hcl (Zofran) 4 Mg Tablet, 1 TAB PO Q6HRS for nausea for 7 Days, #28 Prescribed by: FELICITA SOTOMAYOR MD on 05/15/18 1243 Scheduled PRN Oxycodone/Apap 5-325 (Percocet 5-325 Mg Tablet ) 1 Each Tablet, 1 TAB PO PRN Q4HRS PRN for MILD PAIN, 1ST CHOICE for 3 Days, #12 Prescribed by: FELICITA SOTOMAYOR MD on 05/15/18 1243 FELICITA SOTOMAYOR MD May 15, 2018 15:49
--- NOTE | 2018-05-15 16:00 | NUR ---
Pt discharged home with no additional services. Ambulated to hospital entrance accompanied by friends. Discharge education and information regarding Dx, elevated creatinine, new medications, hydration and follow up information provided to Pt who verbalized understanding and had no further questions. No changes from previous assessment.
== END 2018-05-15 16:05 | disposition home or self-care (01) | DRG 343 ==
LOC: 4 NORTH 08:33
PROVIDERS: ADMIT Internal Medicine; ATTEND Internal Medicine
PROC: 0DTJ4ZZ Resection of Appendix, Percutaneous Endoscopic Approach (ICD-10-PCS; principal; 2018-05-13 11:30)
DX: K35.80 Unspecified acute appendicitis (principal); K38.1 Appendicular concretions; R79.89 Other specified abnormal findings of blood chemistry; Z79.899 Other long term (current) drug therapy
CPT/HCPCS: 36415; 80048; 81001; 82570; 84156; 84300; 85025; 88304; A7015; J1100; J1885; J2001; J2405; J2543; J2704; J2710; J3010; J3490; J7030